=== PATIENT | female | born 1955 | race Caucasian/White ===

== ENCOUNTER 2020-02-22 19:00 | Inpatient (IN) | payer MEDICARE, OTHER ==
[~2020-02-22] VITALS: Ht 170.2 cm; Wt 60.3 kg
[2020-02-22] MEDS ORDERED: FURO-152 PO (19:45)
[2020-02-22] MEDS ORDERED: VALSARTAN (19:45)
[2020-02-22] MEDS ORDERED: DOCU-141 PO (19:45)
[2020-02-22] MEDS ORDERED: ASPI81TA31 PO (19:45)
[2020-02-22] MEDS ORDERED: SACUBITRIL (19:45)
[2020-02-22] MEDS ORDERED: APIX5TAB4 PO (19:45)
[2020-02-22] MEDS ORDERED: POLY17PO4 PO (19:45)
[2020-02-22] MEDS ORDERED: LITH300T3 PO (19:45)
[2020-02-22] MEDS ORDERED: PRAV80TA PO (19:45)
[2020-02-22] MEDS ORDERED: MAGN400T51 PO (19:45)
[2020-02-22] MEDS ORDERED: UMEC62.5 IH (19:45)
[2020-02-22] MEDS ORDERED: CHOL200026 PO (19:45)
[2020-02-22] MEDS ORDERED: SPIR50TA5 PO (19:45)
--- NOTE | 2020-02-22 20:03 | NUR ---
MEDICALLY CLEARED BY DR ANDERSON.
--- NOTE | 2020-02-22 20:51 | NUR ---
Pt. admitted to MHU , under care of Dr. Montemayor / Santino Davis Belongs List completed
[2020-02-22] MEDS ORDERED: MAG HYDROX/AL HYDROX/SIMETH 30 ML LIQUID UDC PO PRN (22:00)
[2020-02-22] MEDS ORDERED: MAGNESIUM HYDROXIDE 30 ML LIQUID UDC PO PRN (22:00)
[2020-02-22] MEDS ORDERED: ACETAMINOPHEN 325 MG TABLET PO PRN (22:00)
[2020-02-22] MEDS ORDERED: TEMAZEPAM 7.5 MG CAPSULE PO PRN (22:00)
[2020-02-22] MEDS: LORAZEPAM 1 MG TABLET PO PRN (23:07)
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
--- NOTE | 2020-02-23 04:53 | NUR ---
PT NOTED WITH SOME EFFECT OF ATIVAN. PT SLIGHTLY ASLEEP SITTING AT THE EDGE OF BED, HEAD ON BEDSIDE TABLE. WILL CONTINUE TO MONITOR.
[2020-02-23 07:49] VITALS: BP 97/52
[2020-02-23] MEDS: SPIRONOLACTONE 50 MG TABLET PO SCH (09:00)
[2020-02-23] MEDS ORDERED: Medication Not On Formulary EA (Apixaban (Eliquis) 5 MG) PO SCH (09:00)
[2020-02-23] MEDS: MAGNESIUM OXIDE 400 MG TABLET PO SCH ×2 (09:58→17:17)
[2020-02-23] MEDS: DOCUSATE SODIUM 100 MG CAPSULE PO SCH ×2 (09:58→17:00)
[2020-02-23] MEDS: FUROSEMIDE 20 MG TABLET PO SCH (09:58)
[2020-02-23] MEDS: ASPIRIN 81 MG TAB.CHEW PO SCH (09:58)
[2020-02-23] MEDS: CHOLECALCIFEROL 1,000 UNIT TABLET PO SCH (09:59)
[2020-02-23] MEDS: MIRALAX 17 GM POWD.PACK PO SCH (09:59)
[2020-02-23] MEDS: LORAZEPAM 1 MG TABLET PO PRN (10:57)
[2020-02-23] MEDS: APIXABAN 5 MG TABLET PO SCH ×2 (11:55→21:22)
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
[2020-02-23 16:10] VITALS: BP 91/50
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
[2020-02-23 20:00] VITALS: BP 93/46
[2020-02-23] MEDS ORDERED: HALOPERIDOL LACTATE 5 MG/1 ML VIAL IM STA (20:39)
[2020-02-23] MEDS ORDERED: LORAZEPAM 2 MG/1 ML VIAL IM STA (20:39)
[2020-02-23] MEDS: ATORVASTATIN 20 MG TABLET PO SCH (21:00)
[2020-02-23] MEDS: risperiDONE 0.5 MG TABLET PO SCH (21:00)
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
[2020-02-24 07:30] VITALS: BP 97/55
[2020-02-24] MEDS: SPIRONOLACTONE 50 MG TABLET PO SCH (09:00)
[2020-02-24] MEDS: MIRALAX 17 GM POWD.PACK PO SCH (09:00)
[2020-02-24] MEDS: DOCUSATE SODIUM 100 MG CAPSULE PO SCH ×2 (09:42→16:03)
[2020-02-24] MEDS: FUROSEMIDE 20 MG TABLET PO SCH (09:42)
[2020-02-24] MEDS: MAGNESIUM OXIDE 400 MG TABLET PO SCH ×2 (09:42→16:03)
[2020-02-24] MEDS: risperiDONE 0.5 MG TABLET PO SCH ×2 (09:42→20:21)
[2020-02-24] MEDS: CHOLECALCIFEROL 1,000 UNIT TABLET PO SCH (09:42)
[2020-02-24] MEDS: ASPIRIN 81 MG TAB.CHEW PO SCH (09:42)
[2020-02-24] MEDS: APIXABAN 5 MG TABLET PO SCH ×2 (10:15→20:21)
[2020-02-24] MEDS: HYDROCODONE/APAP 5-325MG TABLET PO PRN ×2 (13:03→20:58)
--- NOTE | 2020-02-24 14:42 | NUR ---
Pt received resting in bed, no acute distress, or SOB. Pt AAOx2, able to make needs known, assisted to the bathroom, BMx1, and to change clothes. Pt consumed with following OCD patterns involving morning routine, am oral care, and medication administration. Pt displays loose associations, flight of ideas, is repetitious at times, and rambles often. Pt reports c/o chronic pain to lower back radiating down right leg states "pinched nerve" has been an issue resolved with medication in the past. MD contacted, new order recieved for Vanlue 5mg PO PRN Q6hr, and administered. BP medication held due to decreases level of 97/55, hr 50. Able to CFS, denies SI/HI at this time. Will continue to monitor.
[2020-02-24 16:00] VITALS: BP 92/60
[2020-02-24 19:53] VITALS: BP 95/56
[2020-02-24] MEDS: ATORVASTATIN 20 MG TABLET PO SCH (20:21)
--- NOTE | 2020-02-25 01:33 | NUR ---
GPS: RECEIVED PT IN TV ROOM, A/OX2. PT MORE CALM TODAY AND ABLE TO RELATE WITH NURSES. PT COOPERATIVE WITH ROUTINE MEDICATION. STILL NOTED ON AND OFF EXCESSIVE PRESSURE SPEECH. BUT LESS TODAY AND EASILY REDIRECTED . NO PRN GIVEN AT THIS TIME. PT IN BED ASLEEP WITH EVEN BREATHING. Q/15MINS HEAD CHECK ONGOING.
[2020-02-25 07:43] LABS: BASOPHILS % (AUTO) 0.4 % (0.0-2.0); EOSINOPHILS % (AUTO) 1.2 % (0.0-7.0); HEMATOCRIT 41.5 % (31.2-41.9); HEMOGLOBIN 14.1 g/dL (10.9-14.3); LYMPHOCYTES # (AUTO) 1.2 K/uL (20.0-40.0); LYMPHOCYTES % (AUTO) 35.7 % (20.5-51.5); MEAN CORPUSCULAR HEMOGLOBIN 32.4 uug (24.7-32.8); MEAN CORPUSCULAR HGB CONC 34 g/dL (32.3-35.6); MEAN CORPUSCULAR VOLUME 95.7 fL (75.5-95.3); MONOCYTES # (AUTO) 0.2 K/uL (2.0-10.0); MONOCYTES % (AUTO) 7.1 % (0.0-11.0); NEUTROPHILS # (AUTO) 1.8 K/uL (1.8-8.9); NEUTROPHILS % (AUTO) 55.6 % (38.5-71.5); PLATELET COUNT (AUTO) 151 K/uL (179-408); RED BLOOD CELL COUNT(AUTO) 4.34 MIL/uL (3.63-4.92); WHITE BLOOD COUNT (AUTO) 3.2 K/uL (3.8-11.8)
[2020-02-25 07:51] LABS: BILIRUBIN,TOTAL 0.3 mg/dL (0.2-1.0); CREATININE 0.9 mg/dL (0.6-1.3); MAGNESIUM 1.8 mg/dL (1.8-2.4); PHOSPHOROUS 3.8 mg/dL (2.5-4.9); POTASSIUM 3.6 mmol/L (3.5-5.1); TOTAL PROTEIN, SERUM 5.7 g/dL (6.4-8.2)
[2020-02-25 08:04] VITALS: BP 134/62
[2020-02-25 08:12] LABS: THYROID STIMULATING HORMONE 0.688 mIU/mL (0.358-3.740)
[2020-02-25] MEDS: ASPIRIN 81 MG TAB.CHEW PO SCH (08:52)
[2020-02-25] MEDS: MAGNESIUM OXIDE 400 MG TABLET PO SCH ×2 (08:52→16:52)
[2020-02-25] MEDS: MIRALAX 17 GM POWD.PACK PO SCH (08:53)
[2020-02-25] MEDS: CHOLECALCIFEROL 1,000 UNIT TABLET PO SCH (08:53)
[2020-02-25] MEDS: DOCUSATE SODIUM 100 MG CAPSULE PO SCH ×2 (08:53→16:58)
[2020-02-25] MEDS: risperiDONE 0.5 MG TABLET PO SCH ×2 (09:00→21:00)
[2020-02-25] MEDS: FUROSEMIDE 20 MG TABLET PO SCH (09:00)
[2020-02-25] MEDS: SPIRONOLACTONE 50 MG TABLET PO SCH (09:10)
[2020-02-25] MEDS: APIXABAN 5 MG TABLET PO SCH ×2 (09:31→20:19)
[2020-02-25] MEDS: HYDROCODONE/APAP 5-325MG TABLET PO PRN ×2 (09:31→16:55)
[2020-02-25] MEDS: FLUTICASONE/VILANTEROL 1 EACH BLST.W.DEV INH SCH (11:04)
--- NOTE | 2020-02-25 12:08 | NUR ---
KARLA Initial Discharge Plan: Patient was residing at [facility] [address] [place] [address] ([phone]) however patient is no longer able to return. Per Janet Mcgraw Sister/DPOA ([phone]), patient needs a nursing home facility. KARLA will continue to work with patient, family, and MD to ensure a safe and proper discharge plan.
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
[2020-02-25 15:46] VITALS: BP 106/55
[2020-02-25 20:05] VITALS: BP 95/57
[2020-02-25] MEDS: ATORVASTATIN 20 MG TABLET PO SCH (20:19)
--- NOTE | 2020-02-25 22:30 | NUR ---
received to care, watching tv with peers, pleasant, but guarded, upon approach. refused risperdal, stating that it makes her "feel sick". Dr bonner saw her, and changed it to haldol, to start in the morning. as of 2229, she appears to be asleep. no distress noted. will continue to monitor closely.
--- NOTE | 2020-02-26 06:00 | NUR ---
slept 6 hours. continues to sleep. no distress noted.
[2020-02-26 07:45] VITALS: BP 108/60
[2020-02-26] MEDS: DOCUSATE SODIUM 100 MG CAPSULE PO SCH ×2 (08:10→16:16)
[2020-02-26] MEDS: HALOPERIDOL 0.5 MG TABLET PO SCH ×4 (08:10→17:00)
[2020-02-26] MEDS: FUROSEMIDE 20 MG TABLET PO SCH (08:11)
[2020-02-26] MEDS: CHOLECALCIFEROL 1,000 UNIT TABLET PO SCH (08:11)
[2020-02-26] MEDS: ASPIRIN 81 MG TAB.CHEW PO SCH (08:11)
[2020-02-26] MEDS: MIRALAX 17 GM POWD.PACK PO SCH ×2 (08:19→09:00)
[2020-02-26] MEDS: MAGNESIUM OXIDE 400 MG TABLET PO SCH ×2 (08:19→16:16)
[2020-02-26] MEDS: APIXABAN 5 MG TABLET PO SCH ×2 (08:20→20:28)
[2020-02-26] MEDS: SPIRONOLACTONE 50 MG TABLET PO SCH (08:25)
--- NOTE | 2020-02-26 11:03 | NUR ---
KARLA Coordination of Care: SW called [facility] ([phone]) to inquire of patient may be accepted back to their facility upon discharge from hospital. Left a voicemail for educational resource coordinator to call this expert medical writer back.
[2020-02-26] MEDS: HYDROCODONE/APAP 5-325MG TABLET PO PRN ×2 (11:50→18:01)
--- NOTE | 2020-02-26 13:19 | NUR ---
Received patient sleeping in bed in stable condition. Patient suspicious and anxious noted. Patient unable to care for herself. Patient ask to do small things for her. Patient compliant with medication but need to do her routine and eat all her food prior to take medication. no agitation noted. not in distress. will continue monitor
[2020-02-26 15:42] VITALS: BP 120/82
--- NOTE | 2020-02-26 17:03 | NUR ---
Patient took medication except haldol despite of ecouragement and education. Patient believe it is not effect and have side effect. MD notified. Charge nurse notified. will continue monitor
[2020-02-26 20:17] VITALS: BP 109/68
[2020-02-26] MEDS: ATORVASTATIN 20 MG TABLET PO SCH (20:28)
--- NOTE | 2020-02-26 22:00 | NUR ---
received to care, in activity room, watching tv with peers, pleasant, but guarded, upon approach. compliant with medications and staff direction. as of 2199, she remains awake, watching tv. no distress noted. will continue to monitor closely.
--- NOTE | 2020-02-26 23:30 | NUR ---
appears to be asleep. no distress noted.
--- NOTE | 2020-02-27 06:00 | NUR ---
slept 6 hours. continues to sleep. no distress noted.
[2020-02-27 07:30] VITALS: BP 126/83
[2020-02-27] MEDS: MIRALAX 17 GM POWD.PACK PO SCH (08:31)
[2020-02-27] MEDS: MAGNESIUM OXIDE 400 MG TABLET PO SCH ×2 (08:31→16:27)
[2020-02-27] MEDS: DOCUSATE SODIUM 100 MG CAPSULE PO SCH ×2 (08:31→16:27)
[2020-02-27] MEDS: CHOLECALCIFEROL 1,000 UNIT TABLET PO SCH (08:31)
[2020-02-27] MEDS: FLUTICASONE/VILANTEROL 1 EACH BLST.W.DEV INH SCH (08:31)
[2020-02-27] MEDS: ASPIRIN 81 MG TAB.CHEW PO SCH (08:31)
[2020-02-27] MEDS: HALOPERIDOL 0.5 MG TABLET PO SCH ×5 (08:31→16:41)
[2020-02-27] MEDS: SPIRONOLACTONE 50 MG TABLET PO SCH (08:33)
[2020-02-27] MEDS: APIXABAN 5 MG TABLET PO SCH ×2 (08:33→20:29)
[2020-02-27] MEDS: FUROSEMIDE 20 MG TABLET PO SCH (08:54)
--- NOTE | 2020-02-27 10:29 | NUR ---
SW Family Contact: Faxed patient's referral packet to [facility] ( ) for review and patient was not accepted to the facility, spoke with Jordi. 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 Spoke with Janet Mariluz Purdy/DPCIARA ([phone]) regarding this and the share of cost, Janet is okay with the share of cost and will pay for any alf.
[2020-02-27] MEDS: HYDROCODONE/APAP 5-325MG TABLET PO PRN ×3 (10:32→22:24)
--- NOTE | 2020-02-27 11:06 | NUR ---
KARLA Coordination of Care: KARLA called again [facility] ([phone]) to inquire of patient may be accepted back to their facility upon discharge from hospital. Spoke with Juan special services coordinator who stated that they will not be able to accept this patient back due to her leaving AMA several times. Juan suggested patient's sister, Janet ([phone]) to call the facility and speak with BRITTANY Guerrero (ext: [phone]) regarding patient's acceptance there. KARLA called Janet ([phone]) and informed of the above conversation, Janet stated she will talk to Karl, and in the mean time asked if this pattern chart writer will continue to look for alternate assisted placement for the patient, this pattern chart writer agreed.
--- NOTE | 2020-02-27 11:12 | NUR ---
KARLA Discharge Planning: KARLA spoke with and faxed patient's referral packet to Latha video production coordinator at [facility] (fax: [phone] ), waiting for review and possible placement option. Latha stated that she will review the referral packet, and speak with patient's sister and get back to this check writer. Addendum: 02/27/20 at 1617 by FELICE HICKS Patient is accepted to [facility] and can admit to facility upon discharge.
--- NOTE | 2020-02-27 15:32 | NUR ---
GPS: received patient AOx2-3, patient paranoid and delusional, needs prompt in taking medication, patient walks around i the hallway with FWW, patient needed reenforcement and set limit , patient eventually took medication, patient cooperative , will continue monitor
[2020-02-27 16:00] VITALS: BP 101/72
--- NOTE | 2020-02-27 17:24 | NUR ---
patient refused her haldol
--- NOTE | 2020-02-27 18:51 | NUR ---
patient seen and examine by Dr. Albina MD file MAGDALENE
[2020-02-27 20:11] VITALS: BP 139/65
[2020-02-27] MEDS: ATORVASTATIN 20 MG TABLET PO SCH (20:28)
--- NOTE | 2020-02-27 22:00 | NUR ---
received to care, watching tv with peers, pleasant upon approach. interacts well with select female peers. compliant with medications and staff direction. pt is hyperverbal, and needy, at times. needs redirection at times, which she responds to, well. continues to refuse all psychotropic medications, even when explained the risks and benefits of compliance. as of 0, she remains awake, in her room, reading. no distress noted. will continue to monitor closely.
--- NOTE | 2020-02-27 23:30 | NUR ---
PRN norco was given at 2223, for lower back pain 06/05. as of 2299, she appears to be asleep. no dsitress noted. will continue to monitor closely.
--- NOTE | 2020-02-28 06:00 | NUR ---
slept 5.5 hours. continues to sleep. no distress noted.
[2020-02-28 07:30] VITALS: BP 111/57
[2020-02-28] MEDS: HALOPERIDOL 0.5 MG TABLET PO SCH ×3 (08:50→17:00)
[2020-02-28] MEDS: MAGNESIUM OXIDE 400 MG TABLET PO SCH ×2 (08:50→17:05)
[2020-02-28] MEDS: ASPIRIN 81 MG TAB.CHEW PO SCH (08:50)
[2020-02-28] MEDS: CHOLECALCIFEROL 1,000 UNIT TABLET PO SCH (08:50)
[2020-02-28] MEDS: FUROSEMIDE 20 MG TABLET PO SCH (08:50)
[2020-02-28] MEDS: DOCUSATE SODIUM 100 MG CAPSULE PO SCH ×2 (08:50→17:05)
[2020-02-28] MEDS: SPIRONOLACTONE 50 MG TABLET PO SCH (08:51)
[2020-02-28] MEDS: FLUTICASONE/VILANTEROL 1 EACH BLST.W.DEV INH SCH (08:51)
[2020-02-28] MEDS: APIXABAN 5 MG TABLET PO SCH ×2 (08:52→20:25)
[2020-02-28] MEDS: MIRALAX 17 GM POWD.PACK PO SCH (08:53)
[2020-02-28] MEDS: HYDROCODONE/APAP 5-325MG TABLET PO PRN ×2 (11:04→20:24)
[2020-02-28 16:00] VITALS: BP 108/57
--- NOTE | 2020-02-28 19:30 | NUR ---
Received patient in her room,awake, complaining of tolerable low back pain at this time, asking when she's due for her next [place] pain medications. Ambulatory with steady gait, No s/s of respiratory distress. Safety measures and fall precaution maintained. Continue care as planned.
[2020-02-28] MEDS: ATORVASTATIN 20 MG TABLET PO SCH (20:24)
--- NOTE | 2020-02-28 20:25 | NUR ---
Medicated for low back pain as ordered and needed. Will monitor.
[2020-02-28 21:19] VITALS: BP 101/50
--- NOTE | 2020-02-29 06:11 | NUR ---
Slept 6 hours today. Medicated once for complaint of low back pain with relief. No further complaint presented. All needs attended and met. No significant event reported all night. VS stable.
[2020-02-29 07:30] VITALS: BP 112/61
[2020-02-29 07:41] LABS: THYROID STIMULATING HORMONE 0.906 mIU/mL (0.358-3.740)
[2020-02-29 07:52] LABS: *RHEUMATOID FACTOR SCREEN NEGATIVE (NEGATIVE)
[2020-02-29] MEDS: ASPIRIN 81 MG TAB.CHEW PO SCH (08:53)
[2020-02-29] MEDS: HALOPERIDOL 0.5 MG TABLET PO SCH ×3 (08:53→16:03)
[2020-02-29] MEDS: FLUTICASONE/VILANTEROL 1 EACH BLST.W.DEV INH SCH (08:53)
[2020-02-29] MEDS: DOCUSATE SODIUM 100 MG CAPSULE PO SCH ×2 (08:53→16:03)
[2020-02-29] MEDS: CHOLECALCIFEROL 1,000 UNIT TABLET PO SCH (08:53)
[2020-02-29] MEDS: MAGNESIUM OXIDE 400 MG TABLET PO SCH ×2 (08:54→16:03)
[2020-02-29] MEDS: MIRALAX 17 GM POWD.PACK PO SCH (08:54)
[2020-02-29] MEDS: APIXABAN 5 MG TABLET PO SCH ×2 (08:54→20:41)
[2020-02-29] MEDS: FUROSEMIDE 20 MG TABLET PO SCH (08:54)
[2020-02-29] MEDS: SPIRONOLACTONE 50 MG TABLET PO SCH (09:33)
[2020-02-29] MEDS: HYDROCODONE/APAP 5-325MG TABLET PO PRN ×2 (10:42→22:14)
--- NOTE | 2020-02-29 10:59 | NUR ---
Social Work Firearms Report (DOJ): Associate Material Handler completed and submitted a DP[employer] firearms report for 5250 grave disability certification. A copy of report has been placed in patient chart.
--- NOTE | 2020-02-29 12:48 | NUR ---
SW Family Contact: Spoke with Janet Mcgraw Sister/DPOA ([phone]) regarding patient's discharge plan. Janet stated that she is happy with [facility] for the patient however, she wishes it was something closer to [facility]. This designer/writer explaining that facilities are not accepting patients at the moment and that she was refused by another facility. This designer/writer recommended she can look as well and recommend facilities to this designer/writer. However, she will be alright with [facility] for now.
--- NOTE | 2020-02-29 15:43 | NUR ---
Social Work Individual Therapy: barrow worker met with pt for brief counseling to address pt's disorganized thought process. Pt presented with pressured and hyperverbal speech. During session, pt was tangible and unable to be redirected. Pt is unable to keep focus on topc at hand and becomes irritable when elementary school social worker attempts to redirect her focus to the conversation.
[2020-02-29 16:00] VITALS: BP 117/79
--- NOTE | 2020-02-29 17:31 | NUR ---
GPS: received patient asleep on bed, patient ate breakfast , took medication after prompting and compromise with the patient rituals, patient always wanted to finish meals and have to use her toilet and wanted a detailed information on her medication which was provided, today patient less irritated and been compliant with her medication all the day, patient was scheduled for [place] sher
[2020-02-29 20:29] VITALS: BP 127/60
[2020-02-29] MEDS: ATORVASTATIN 20 MG TABLET PO SCH (20:38)
--- NOTE | 2020-02-29 21:37 | NUR ---
AAox2-3 Ambulatory with walker. Compliant with meds. No acute distress noted. VSS. Dr Montemayor came and saw patient. Haldol increased from 0.25 to Haldol 1 mg. No signs of agitation or behavioral issues noted. Will monitor patient.
--- NOTE | 2020-03-01 05:58 | NUR ---
Slept 5 1/2 hours last night. No acute distress noted. Was medicated with [place] for low back pain with relief noted. All needs met. No behavioral issues noted.
[2020-03-01 07:30] VITALS: BP 116/53
[2020-03-01] MEDS: HALOPERIDOL 1 MG TABLET PO SCH ×3 (09:00→17:00)
[2020-03-01] MEDS: FLUTICASONE/VILANTEROL 1 EACH BLST.W.DEV INH SCH (09:26)
[2020-03-01] MEDS: CHOLECALCIFEROL 1,000 UNIT TABLET PO SCH (09:27)
[2020-03-01] MEDS: ASPIRIN 81 MG TAB.CHEW PO SCH (09:27)
[2020-03-01] MEDS: DOCUSATE SODIUM 100 MG CAPSULE PO SCH ×2 (09:27→17:59)
[2020-03-01] MEDS: FUROSEMIDE 20 MG TABLET PO SCH (09:28)
[2020-03-01] MEDS: MAGNESIUM OXIDE 400 MG TABLET PO SCH ×2 (09:28→18:00)
[2020-03-01] MEDS: MIRALAX 17 GM POWD.PACK PO SCH (09:28)
[2020-03-01] MEDS: SPIRONOLACTONE 50 MG TABLET PO SCH (09:30)
[2020-03-01] MEDS: APIXABAN 5 MG TABLET PO SCH ×2 (09:32→21:14)
[2020-03-01 11:08] LABS: *IMMUNOGLOBULIN G, SERUM 466 mg/dL (586-1602); IMMUNOGLOBULIN A, SERUM 47 mg/dL (87-352); IMMUNOGLOBULIN M, SERUM 158 mg/dL (26-217)
[2020-03-01] MEDS: HYDROCODONE/APAP 5-325MG TABLET PO PRN ×2 (12:43→18:37)
[2020-03-01 13:08] LABS: *ANTI-SCLERODERMA-70 AB <0.2 AI (0.0-0.9); *SJOGREN'S ANTI-SS-A <0.2 AI (0.0-0.9); *SJOGREN'S ANTI-SS-B <0.2 AI (0.0-0.9); *SMITH ANTIBODIES <0.2 AI (0.0-0.9); ANTI-DNA(DS) AB, QN <1 IU/mL (0-9)
[2020-03-01 16:00] VITALS: BP 98/55
[2020-03-01 20:07] VITALS: BP 114/34
[2020-03-01] MEDS: ATORVASTATIN 20 MG TABLET PO SCH (20:33)
--- NOTE | 2020-03-01 21:21 | NUR ---
Received pt walking in the hallway using walker. No acute distress noted. Denies pain/ discomfort. Denies suicidal ideation. Due meds given as ordered. Safety measures maintained. Will continue to monitor.
[2020-03-02 07:48] VITALS: BP 111/82
[2020-03-02] MEDS: HALOPERIDOL 1 MG TABLET PO SCH ×3 (09:00→16:39)
[2020-03-02] MEDS: MAGNESIUM OXIDE 400 MG TABLET PO SCH ×2 (09:58→16:39)
[2020-03-02] MEDS: ASPIRIN 81 MG TAB.CHEW PO SCH (09:58)
[2020-03-02] MEDS: FUROSEMIDE 20 MG TABLET PO SCH (09:58)
[2020-03-02] MEDS: SPIRONOLACTONE 50 MG TABLET PO SCH (09:58)
[2020-03-02] MEDS: CHOLECALCIFEROL 1,000 UNIT TABLET PO SCH (09:58)
[2020-03-02] MEDS: DOCUSATE SODIUM 100 MG CAPSULE PO SCH ×2 (09:58→16:39)
[2020-03-02] MEDS: FLUTICASONE/VILANTEROL 1 EACH BLST.W.DEV INH SCH (09:59)
[2020-03-02] MEDS: MIRALAX 17 GM POWD.PACK PO SCH (10:00)
--- NOTE | 2020-03-02 10:00 | NUR ---
Gps/Liquor Grinding Mill Operator- Patient stll refusing haldol 1 mg po, claimed it gives her extra movement to her lips that she does not like, encouraged to to talke to her Psychiatrist about it, reviewed with patient, educ. re- haldol, still refused.. Attending group therapy, stayed in the patrio with her group. Hyperverbal , anxious.
[2020-03-02] MEDS: APIXABAN 5 MG TABLET PO SCH ×2 (10:05→20:26)
[2020-03-02] MEDS: HYDROCODONE/APAP 5-325MG TABLET PO PRN ×2 (12:59→20:51)
--- NOTE | 2020-03-02 13:00 | NUR ---
Gps/Inventory Control Planner- Noted patient anxious, loud, complaining in the dinning room she did not like her food requesting another tray, but her lunch tray not complete called kitchen to assist pt. w/ needs(food). Offered ativan , noted > anxious, claimed she does not need it, she'll try to calm down., she apologized, claimed will try to be quiet. Still refused haldol 1 mg po.
[2020-03-02 15:37] VITALS: BP 117/69
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
--- NOTE | 2020-03-02 16:59 | NUR ---
Gps/Distribution Operation Supervisor- Per patient she's not supposed to take any psych. med. r/t to her [place]. treatment , claimed recommended by her Primary Doctor.Instructed and encouraged the need to talk to her Psychiatrist, and reminded patient she's at [facility]
[2020-03-02 20:00] VITALS: BP 102/60
--- NOTE | 2020-03-02 20:00 | NUR ---
GPS NURSE'S NOTES. RECEIVED PATIENT IN THE DAY ROOM WATCHING TV. SHE IS NOTED A/O 3, CALM AND PLEASANT UPON APPROACHED. SHE IS ABLE TO VERBALIZED FEELINGS. PATIENT IS SELECTIVE WITH HER MEDICATION REGIMENT. SHE IS COMPLIANT WITH ALL HER MEDICAL MEDICATION AND PO PRNs PAIN MEDICATIONS. SHE DENIES SI/HI/VH/AH. SHE IS NOTED WITH POOR INSIGHT TO THE REASON FOR HER ADMISSION TO MHU. V/S STABLE. PT IS REASSURED FOR HER SAFETY. SAFETY AND FALL PRECAUTION IN PLACE. WILL CONTINUE TO MONITOR,
[2020-03-02] MEDS: ATORVASTATIN 20 MG TABLET PO SCH (20:22)
[2020-03-03 07:30] VITALS: BP 111/51
[2020-03-03] MEDS: HALOPERIDOL 1 MG TABLET PO SCH ×3 (08:53→16:02)
[2020-03-03] MEDS: FLUTICASONE/VILANTEROL 1 EACH BLST.W.DEV INH SCH (08:53)
[2020-03-03] MEDS: MAGNESIUM OXIDE 400 MG TABLET PO SCH ×2 (08:53→16:02)
[2020-03-03] MEDS: FUROSEMIDE 20 MG TABLET PO SCH (08:53)
[2020-03-03] MEDS: DOCUSATE SODIUM 100 MG CAPSULE PO SCH ×2 (08:53→16:02)
[2020-03-03] MEDS: CHOLECALCIFEROL 1,000 UNIT TABLET PO SCH (08:53)
[2020-03-03] MEDS: ASPIRIN 81 MG TAB.CHEW PO SCH (08:53)
[2020-03-03] MEDS: SPIRONOLACTONE 50 MG TABLET PO SCH (08:54)
[2020-03-03] MEDS: MIRALAX 17 GM POWD.PACK PO SCH (08:55)
[2020-03-03] MEDS: APIXABAN 5 MG TABLET PO SCH ×2 (08:55→21:19)
[2020-03-03] MEDS: HYDROCODONE/APAP 5-325MG TABLET PO PRN ×2 (13:34→20:14)
[2020-03-03] MEDS ORDERED: HALOPERIDOL LACTATE 5 MG/1 ML VIAL IM ONE (14:00)
[2020-03-03] MEDS ORDERED: HALOPERIDOL LACTATE 5 MG/1 ML VIAL IM PRN (14:15)
[2020-03-03 15:14] VITALS: BP 113/56
[2020-03-03 20:25] VITALS: BP 112/52
--- NOTE | 2020-03-04 04:16 | NUR ---
Received patient in bed. AAO x3. No acute distress or SOB was noted. Compliant with medication. No SI. Calm and cooperative. No behavioral issues. Safety measures maintained. All due medication administered as ordered. Continue to monitor.
[2020-03-04 05:07] LABS: A/G RATIO 1.6 (0.7-1.7); ALBUMIN 3.1 g/dL (2.9-4.4); ALPHA-1-GLOBULIN 0.2 g/dL (0.0-0.4); ALPHA-2-GLOBULIN 0.6 g/dL (0.4-1.0); BETA GLOBULIN 0.7 g/dL (0.7-1.3); GAMMA GLOBULIN 0.5 g/dL (0.4-1.8); M-SPIKE Not Observed g/dL (Not Observed)
[2020-03-04 07:30] VITALS: BP 121/68
[2020-03-04] MEDS: FLUTICASONE/VILANTEROL 1 EACH BLST.W.DEV INH SCH (08:33)
[2020-03-04] MEDS: FUROSEMIDE 20 MG TABLET PO SCH (08:34)
[2020-03-04] MEDS: SPIRONOLACTONE 50 MG TABLET PO SCH (08:34)
[2020-03-04] MEDS: MAGNESIUM OXIDE 400 MG TABLET PO SCH ×2 (08:34→17:04)
[2020-03-04] MEDS: ASPIRIN 81 MG TAB.CHEW PO SCH (08:34)
[2020-03-04] MEDS: DOCUSATE SODIUM 100 MG CAPSULE PO SCH ×2 (08:34→17:04)
[2020-03-04] MEDS: CHOLECALCIFEROL 1,000 UNIT TABLET PO SCH (08:35)
[2020-03-04] MEDS: HALOPERIDOL 1 MG TABLET PO SCH ×3 (08:35→17:04)
[2020-03-04] MEDS: APIXABAN 5 MG TABLET PO SCH ×2 (08:35→20:45)
[2020-03-04] MEDS: MIRALAX 17 GM POWD.PACK PO SCH (08:36)
--- NOTE | 2020-03-04 11:15 | NUR ---
Received patient in room this am. Very hyperverbal, paranoid and extremely needy. Patient was however compliant with her medications after about an hour of encouragement and education. This patient needs constant redirection and limit setting. Continuing to monitor for pain , safety and any increase in anxiety escalation. No acute distress noted at this time.
[2020-03-04] MEDS: HYDROCODONE/APAP 5-325MG TABLET PO PRN ×2 (11:39→20:47)
[2020-03-04 15:04] VITALS: BP 114/72
--- NOTE | 2020-03-04 15:09 | NUR ---
Social Work Individual Therapy: woodworker met with patient for brief supportive counseling to address patient's disorganized thought process. Pt continues to remain hyperverbal and repetitive. Patient is unable to engage in a meaningful conversation and stay on topic of questions answered by this manager social services. Constant redirection is required for patient to understand her concerns. woodworker provided support and encouraged patient to remain calm and cooperative with her treatment and continue to participate in group activities.
[2020-03-04 20:51] VITALS: BP 135/60
[2020-03-05] MEDS: LORAZEPAM 1 MG TABLET PO PRN ×2 (00:30→17:41)
--- NOTE | 2020-03-05 02:31 | NUR ---
GPS: PT A/O X2, UP IN ACTIVITY ROOM AMBULATING WITH WALKER. PT WAS NOTED HYPERVERBAL WHILE USING TELEPHONE TALKING TO HER SISTER. PT WAS ADVISED OF LOWERING HER VOICE DUE TO OTHER PT'S COMPLAINING, BUT PT WAS NOT ABLE TO BE REDIRECTED. PT WAS ASKED TO DROP THE CALL AND TAKE A LITTLE BREAK TO VENT AND CALM. PT WAS COOPERATIVE, ROUTINE MEDICATIONS GIVEN AND PT REQUESTED FOR NORCO DUE TO PAIN. PRN GIVEN WITH REPORT OF IMPROVEMENT. PT WANT TO HER ROOM BUT UNABLE TO SLEEP DUE TO OVER PREOCCUPIED OF ROOMMATE TOUCHING HER STUFFS. PT REQUESTED ATIVAN DUE TO FEELING TOO ANXIOUS. PRN WAS GIVEN AND NOTED SOME EFFECT. PT NOW RESTING IN BED WITH EVEN BREATHING. WILL CONTINUE TO MONITOR Q/15MINS HEAD COUNT.
[2020-03-05 07:30] VITALS: BP 116/60
[2020-03-05] MEDS: CHOLECALCIFEROL 1,000 UNIT TABLET PO SCH (08:51)
[2020-03-05] MEDS: DOCUSATE SODIUM 100 MG CAPSULE PO SCH ×2 (08:51→17:00)
[2020-03-05] MEDS: FUROSEMIDE 20 MG TABLET PO SCH (08:51)
[2020-03-05] MEDS: ASPIRIN 81 MG TAB.CHEW PO SCH (08:51)
[2020-03-05] MEDS: HALOPERIDOL 1 MG TABLET PO SCH ×3 (08:51→17:41)
[2020-03-05] MEDS: FLUTICASONE/VILANTEROL 1 EACH BLST.W.DEV INH SCH (08:51)
[2020-03-05] MEDS: MAGNESIUM OXIDE 400 MG TABLET PO SCH ×2 (08:51→17:41)
[2020-03-05] MEDS: SPIRONOLACTONE 50 MG TABLET PO SCH (08:52)
[2020-03-05] MEDS: APIXABAN 5 MG TABLET PO SCH ×2 (08:53→20:09)
[2020-03-05] MEDS: MIRALAX 17 GM POWD.PACK PO SCH (08:53)
[2020-03-05] MEDS: HYDROCODONE/APAP 5-325MG TABLET PO PRN ×2 (12:06→20:17)
--- NOTE | 2020-03-05 14:33 | NUR ---
Received patient in the am , awake and alert. Very stressed out over little things. Medications taken after extended time d/t the fact this patient has OCD behaviors. Medicated for pain x1, refusing to take PRN medication for anxiety. Patient is hyperverbal and needs to hypermanage every situation. Constant reminders to focus needed plus reassurance and redirection. Multiple requests for things asked all day long. Patient is needy and attention seeking. VS are stable, no resp distress noted. Monitoring for safety and behavior escalation.
[2020-03-05 16:00] VITALS: BP 99/57
[2020-03-05 20:55] VITALS: BP 100/50
[2020-03-05] MEDS: DIVALPROEX 250 MG TABLET.DR PO SCH (21:45)
--- NOTE | 2020-03-05 23:30 | NUR ---
received to care, pleasant upon approach, but very restless, and hyperverbal. remains obsessive in her behaviors. difficult to redirect. seen by Dr Montemayor, this evening. depakote was ordered to start this evening, but she refused to take it, even with encouragement. PRN norco was given at 2016, for lower back pain, which was effective. as of 2329, she remains awake, in activity room. PRN medications were offered for insomnia or anxiety, but she declined. currently sitting quietly. no distress noted.
--- NOTE | 2020-03-06 00:15 | NUR ---
went to bed, around 2355. as of 14, he appears to be asleep. no distress noted. will continue to monitor closely.
--- NOTE | 2020-03-06 06:00 | NUR ---
slept 4.75 hours total. continues to sleep. no distress noted.
[2020-03-06 07:30] VITALS: BP 121/67
[2020-03-06] MEDS: MAGNESIUM OXIDE 400 MG TABLET PO SCH ×2 (08:59→17:54)
[2020-03-06] MEDS: ASPIRIN 81 MG TAB.CHEW PO SCH (08:59)
[2020-03-06] MEDS: FUROSEMIDE 20 MG TABLET PO SCH (08:59)
[2020-03-06] MEDS: HALOPERIDOL 1 MG TABLET PO SCH ×3 (08:59→17:54)
[2020-03-06] MEDS: DOCUSATE SODIUM 100 MG CAPSULE PO SCH ×2 (08:59→17:00)
[2020-03-06] MEDS: DIVALPROEX 250 MG TABLET.DR PO SCH ×2 (08:59→20:41)
[2020-03-06] MEDS: CHOLECALCIFEROL 1,000 UNIT TABLET PO SCH (08:59)
[2020-03-06] MEDS: MIRALAX 17 GM POWD.PACK PO SCH (09:00)
[2020-03-06] MEDS: SPIRONOLACTONE 50 MG TABLET PO SCH (09:00)
[2020-03-06] MEDS: FLUTICASONE/VILANTEROL 1 EACH BLST.W.DEV INH SCH (09:01)
[2020-03-06] MEDS: APIXABAN 5 MG TABLET PO SCH ×2 (09:04→20:42)
--- NOTE | 2020-03-06 12:08 | NUR ---
SW Family Contact: Spoke with Janet Mcgraw Sister/DPOA ([phone]) regarding patient's current condition. Janet was concerned that the patient is not doing better, this business writer provided updates on patient's behaviors and recent medication changes. Also re discussed patient's discharge plan which remain the same to [facility].
[2020-03-06] MEDS: HYDROCODONE/APAP 5-325MG TABLET PO PRN ×2 (12:13→20:42)
[2020-03-06 16:00] VITALS: BP 117/60
--- NOTE | 2020-03-06 18:22 | NUR ---
EOS note: No significant acute changes this shift. Pt A/Ox2-3 verbally responsive and able to make her needs known. Pt. compliant with medications and tx. Pt. reported BEVER[place] bruise, stated "This bruise came from [facility]", photos taken and placed in chart for documentation. [place] given for c/o lower back pain and effective. Pt. ambulatory with steady gait using FWW. Frequent rounding done. Safety measures in place. Will endorse to oncoming shift.
[2020-03-06 20:00] VITALS: BP 126/84
--- NOTE | 2020-03-06 22:00 | NUR ---
eceived to care, watching tv with peers, pleasant, but guarded, upon approach. refused depakote. PRN norco was given at 2041, for lower back pain, which was effective. as of 2199, she remains awake, watching tv. no distress noted. will continue to monitor closely.
--- NOTE | 2020-03-07 06:00 | NUR ---
slept 4.25 hours, total. continues to sleep. no distress noted.
[2020-03-07 07:30] VITALS: BP 136/66
--- NOTE | 2020-03-07 08:00 | NUR ---
Received patient in bed sleeping in NO acute distress. VS stable and will continue with care.
[2020-03-07] MEDS: MAGNESIUM OXIDE 400 MG TABLET PO SCH ×2 (09:16→18:12)
[2020-03-07] MEDS: DIVALPROEX 250 MG TABLET.DR PO SCH ×2 (09:17→20:22)
[2020-03-07] MEDS: SPIRONOLACTONE 50 MG TABLET PO SCH (09:17)
[2020-03-07] MEDS: CHOLECALCIFEROL 1,000 UNIT TABLET PO SCH (09:17)
[2020-03-07] MEDS: DOCUSATE SODIUM 100 MG CAPSULE PO SCH ×2 (09:18→18:11)
[2020-03-07] MEDS: ASPIRIN 81 MG TAB.CHEW PO SCH (09:18)
[2020-03-07] MEDS: HALOPERIDOL 1 MG TABLET PO SCH ×3 (09:18→18:11)
[2020-03-07] MEDS: FUROSEMIDE 20 MG TABLET PO SCH (09:18)
[2020-03-07] MEDS: APIXABAN 5 MG TABLET PO SCH ×2 (09:19→20:23)
[2020-03-07] MEDS: FLUTICASONE/VILANTEROL 1 EACH BLST.W.DEV INH SCH (09:20)
[2020-03-07] MEDS: MIRALAX 17 GM POWD.PACK PO SCH (09:37)
[2020-03-07] MEDS: HYDROCODONE/APAP 5-325MG TABLET PO PRN ×2 (13:12→21:33)
--- NOTE | 2020-03-07 14:30 | NUR ---
Patient was very anxious and paranoid during lunch time. Stating that some one was touching her food, and she cant pick the onions and garcia peepers from tray. Explained to patient there was no body touching her food and calmed patient. Ordered alternative lunch per patient request and ate well. continued monitoring.
[2020-03-07 15:10] VITALS: BP 98/45
--- NOTE | 2020-03-07 16:00 | NUR ---
SW Note: A petition for temporary probate conservatorship was dropped off by Staff Field Engineer Lorenzo Guerrero ([phone]) and a copy was given to the patient and one placed in her chart.
--- NOTE | 2020-03-07 19:50 | NUR ---
Patient in stable condition, VS stable. All due medications administered as ordered and scheduled. Patient calm and cooperative with care. Safety measures in place, needs attended and will continue with care.
--- NOTE | 2020-03-07 19:51 | NUR ---
Endorsed to PM shift.
[2020-03-07 20:09] VITALS: BP 126/75
--- NOTE | 2020-03-07 22:10 | NUR ---
PATIENT RECEIVED IN ACTIVITIES ROOM INTERACTING WITH THE RESIDENTS. PATIENT ALERT/ORIENTED X2. PATIENT IS EASILY IRRITABLE AND ANXIOUS PATIENT IS REDIRECTABLE AND COMPLAINT WITH MEDICATION. PATIENT STATED HAVING BACK PAIN 9/10 PAIN MEDICATION GIVEN ORDERED. SAFE ENVIRONMENT PROVIDED, FREQUENT ROUNDING, AND CLUTTER FREE ENVIRONMENT. BED IN LOWEST POSITION, BED LOCKED AND BED ALARM ON WHILE IN BED.
[2020-03-08 07:30] VITALS: BP 114/53
--- NOTE | 2020-03-08 08:00 | NUR ---
GPS: RECEIVED PATIENT AOX2-3, PATIENT IS ANXIOUS, PRESSURED SPEECH PATIENT GETS EASILY IRRITABLE BUT REDIRECTABLE, SEEN WALKING WITH FWW, COMPLINAT WITH MEDICATION BUT NEEDED PROMPTING, PATIENT VERBALIZES PAIN , PAIN MEDICATION WAS GIVEN NO DISTRESS AT THIS TIME WILL CONTINUE MONITOR
[2020-03-08] MEDS: FLUTICASONE/VILANTEROL 1 EACH BLST.W.DEV INH SCH (08:47)
[2020-03-08] MEDS: ASPIRIN 81 MG TAB.CHEW PO SCH (08:48)
[2020-03-08] MEDS: SPIRONOLACTONE 50 MG TABLET PO SCH (08:48)
[2020-03-08] MEDS: HALOPERIDOL 1 MG TABLET PO SCH ×3 (08:48→16:13)
[2020-03-08] MEDS: FUROSEMIDE 20 MG TABLET PO SCH (08:48)
[2020-03-08] MEDS: MAGNESIUM OXIDE 400 MG TABLET PO SCH ×2 (08:48→16:13)
[2020-03-08] MEDS: DOCUSATE SODIUM 100 MG CAPSULE PO SCH ×2 (08:48→16:14)
[2020-03-08] MEDS: DIVALPROEX 250 MG TABLET.DR PO SCH ×2 (08:48→21:03)
[2020-03-08] MEDS: CHOLECALCIFEROL 1,000 UNIT TABLET PO SCH (08:48)
[2020-03-08] MEDS: APIXABAN 5 MG TABLET PO SCH ×2 (08:49→21:06)
[2020-03-08] MEDS: MIRALAX 17 GM POWD.PACK PO SCH (08:50)
[2020-03-08] MEDS: HYDROCODONE/APAP 5-325MG TABLET PO PRN ×2 (12:16→21:03)
[2020-03-08 16:00] VITALS: BP 132/75
--- NOTE | 2020-03-08 18:09 | NUR ---
patient took shower, and been compliant with medication, no distress, needed, redirection
[2020-03-08 20:27] VITALS: BP 116/60
--- NOTE | 2020-03-08 21:03 | NUR ---
PATIENT STILL AT THE TV ROOM AND REQUESTED NARCO DUE PAIN ON HER BACK. PATIENT BUSY SOCIALIZING WITH OTHER PATIENT, CALM AT THIS TIME. CONT TO MONITOR.
--- NOTE | 2020-03-08 21:45 | NUR ---
PATIENT ALERT ORIENTED, NO COMPLAIN OF PAIN. PATIENT STAYED ON TV ROOM TO WATCH WITH OTHER PATIENTS, PATIENT CALM AT THIS TIME, CONT TO MONITOR.
--- NOTE | 2020-03-09 06:32 | NUR ---
PATIENT ASLEEP BUT AROUSABLE, SLEPT FOR 4.30 HRS, NO FURTHER COMPLAIN OF PAIN, CONT TO MONITOR.
[2020-03-09 07:30] VITALS: BP 137/74
[2020-03-09] MEDS: DOCUSATE SODIUM 100 MG CAPSULE PO SCH ×2 (08:15→17:21)
[2020-03-09] MEDS: DIVALPROEX 250 MG TABLET.DR PO SCH ×2 (08:15→20:19)
[2020-03-09] MEDS: MIRALAX 17 GM POWD.PACK PO SCH (08:15)
[2020-03-09] MEDS: HALOPERIDOL 1 MG TABLET PO SCH ×3 (08:16→17:21)
[2020-03-09] MEDS: FUROSEMIDE 20 MG TABLET PO SCH (08:16)
[2020-03-09] MEDS: ASPIRIN 81 MG TAB.CHEW PO SCH (08:16)
[2020-03-09] MEDS: CHOLECALCIFEROL 1,000 UNIT TABLET PO SCH (08:16)
[2020-03-09] MEDS: MAGNESIUM OXIDE 400 MG TABLET PO SCH ×2 (08:17→17:21)
[2020-03-09] MEDS: APIXABAN 5 MG TABLET PO SCH ×2 (08:17→20:19)
[2020-03-09] MEDS: SPIRONOLACTONE 50 MG TABLET PO SCH (08:18)
[2020-03-09] MEDS: FLUTICASONE/VILANTEROL 1 EACH BLST.W.DEV INH SCH (08:19)
--- NOTE | 2020-03-09 14:07 | NUR ---
patient AOx3, compliant with meds denies SI and HI, needs prompting and redirection, ambulating with FWW.
[2020-03-09] MEDS: HYDROCODONE/APAP 5-325MG TABLET PO PRN ×2 (14:24→21:43)
[2020-03-09 15:23] VITALS: BP 100/62
[2020-03-09 20:12] VITALS: BP 130/66
--- NOTE | 2020-03-10 06:49 | NUR ---
patient slept for approx. 2.30 hrs through the night. continue hyperverbal, preoccupied and anxious. she refused PO PRN medication for insomnia. pt is now sleeping in her bed. will continue to monitor.
[2020-03-10 07:30] VITALS: BP 107/41
[2020-03-10] MEDS: DOCUSATE SODIUM 100 MG CAPSULE PO SCH ×2 (08:34→17:19)
[2020-03-10] MEDS: FLUTICASONE/VILANTEROL 1 EACH BLST.W.DEV INH SCH (08:34)
[2020-03-10] MEDS: ASPIRIN 81 MG TAB.CHEW PO SCH (08:34)
[2020-03-10] MEDS: MAGNESIUM OXIDE 400 MG TABLET PO SCH ×2 (08:34→17:19)
[2020-03-10] MEDS: MIRALAX 17 GM POWD.PACK PO SCH (08:34)
[2020-03-10] MEDS: DIVALPROEX 250 MG TABLET.DR PO SCH ×2 (08:34→20:52)
[2020-03-10] MEDS: HALOPERIDOL 1 MG TABLET PO SCH ×3 (08:35→17:19)
[2020-03-10] MEDS: CHOLECALCIFEROL 1,000 UNIT TABLET PO SCH (08:35)
[2020-03-10] MEDS: FUROSEMIDE 20 MG TABLET PO SCH (08:35)
[2020-03-10] MEDS: SPIRONOLACTONE 50 MG TABLET PO SCH (08:35)
[2020-03-10] MEDS: APIXABAN 5 MG TABLET PO SCH ×2 (08:36→21:00)
--- NOTE | 2020-03-10 11:28 | NUR ---
SW Note: Spoke with Frannie Avelar from [facility] ([phone]) to inform of the patient's placement upon discharge to [facility].
[2020-03-10] MEDS: HYDROCODONE/APAP 5-325MG TABLET PO PRN ×2 (13:17→20:53)
[2020-03-10 16:00] VITALS: BP 110/72
--- NOTE | 2020-03-10 17:59 | NUR ---
received patient AOx3, compliant with meds denies SI and HI, needs prompting and redirection,will be discharged in am to SNF.
[2020-03-10 20:50] VITALS: BP 111/75
--- NOTE | 2020-03-10 22:00 | NUR ---
received to care, watching tv with peers, having minimal interactions with them, but able to make her needs known, to staff. remains hypermanic and obsessive, but more directable. PRN citlalyco was given at 2052, for lower back pain, which was effective. as of 2199, she remains awake, watching tv. no distress noted. will continue to monitor closely.
--- NOTE | 2020-03-10 23:30 | NUR ---
pt went to bed, around 2300. as of 2329, she appears to be asleep. no distress noted. will continue to monitor closely.
--- NOTE | 2020-03-11 06:00 | NUR ---
slept 4.75 hours, total. continues to sleep. no distress noted.
[2020-03-11 07:30] VITALS: BP 114/50
--- NOTE | 2020-03-11 08:02 | NUR ---
Discharge Note: Patient will be discharged to [facility] [address] [place] [address] ([phone]) via ambulance transportation at 9:30am. Spoke with school coordinator, Connie who confirmed patient is accepted to facility. Patients daughter, Janet Mcgraw ([phone]) is aware and agreeable with discharge plans. Patient is aware and agreeable with discharge plans. Patient denies suicidal or homicidal ideation. Patient presents with appropriate mood and congruent affect. Patient will be following up with psychiatrist Dr. Montemayor and Spring Enc[facility] Dr. Cortes at [facility].
[2020-03-11] MEDS: FLUTICASONE/VILANTEROL 1 EACH BLST.W.DEV INH SCH (08:54)
[2020-03-11] MEDS: SPIRONOLACTONE 50 MG TABLET PO SCH (08:55)
[2020-03-11] MEDS: MIRALAX 17 GM POWD.PACK PO SCH (09:00)
[2020-03-11] MEDS: ASPIRIN 81 MG TAB.CHEW PO SCH (09:01)
[2020-03-11] MEDS: MAGNESIUM OXIDE 400 MG TABLET PO SCH (09:01)
[2020-03-11] MEDS: APIXABAN 5 MG TABLET PO SCH (09:01)
[2020-03-11] MEDS: FUROSEMIDE 20 MG TABLET PO SCH (09:01)
[2020-03-11] MEDS: DOCUSATE SODIUM 100 MG CAPSULE PO SCH (09:02)
[2020-03-11] MEDS: CHOLECALCIFEROL 1,000 UNIT TABLET PO SCH (09:02)
[2020-03-11] MEDS: DIVALPROEX 250 MG TABLET.DR PO SCH (09:02)
[2020-03-11] MEDS: HALOPERIDOL 1 MG TABLET PO SCH (09:02)
--- NOTE | 2020-03-11 10:29 | NUR ---
Discharged Patient to [facility] via ambulance, all am medication given to patient with prompting ,vs stable.all personal belonging taking by patient.
== END 2020-03-11 10:15 | DRG 885 ==
LOC: ER 19:09 → GPS 21:09
PROVIDERS: ADMIT Psychiatry & Neurology Psychiatry; ATTEND Nurse Practitioner Acute Care
DX: F29 Unspecified psychosis not due to a substance or known physiological condition (principal); E88.09 Other disorders of plasma-protein metabolism, not elsewhere classified; J44.9 Chronic obstructive pulmonary disease, unspecified; I25.10 Atherosclerotic heart disease of native coronary artery without angina pectoris; Z92.3 Personal history of irradiation; Z86.718 Personal history of other venous thrombosis and embolism; Z85.118 Personal history of other malignant neoplasm of bronchus and lung; D61.818 Other pancytopenia; Z79.01 Long term (current) use of anticoagulants; F41.9 Anxiety disorder, unspecified; F20.9 Schizophrenia, unspecified; Z73.6 Limitation of activities due to disability; I50.9 Heart failure, unspecified; F39 Unspecified mood [affective] disorder; D72.819 Decreased white blood cell count, unspecified; Z92.21 Personal history of antineoplastic chemotherapy; Z87.891 Personal history of nicotine dependence; Z79.82 Long term (current) use of aspirin; R73.03 Prediabetes; N63.0 Unspecified lump in unspecified breast
CPT/HCPCS: 36415; 82747; 82784; 83735; 84100; 84155; 84165; 84443; 85014; 85025; 85651; 86038; 86300; 86334; 86430; 86706; 86803; 87340; 87806; A4663; J1630; J2060; J3490

== ENCOUNTER 2022-01-02 04:57 | Emergency (ER) | payer MEDICARE, OTHER ==
[~2022-01-02] VITALS: Ht 170.2 cm; Wt 59.0 kg
[~2022-01-02 04:57] MED LIST: APIX5TAB4 PO; ASPI81TA31 PO; CHOL200026 PO; DOCU-141 PO; FURO-152 PO; MAGN400T51 PO; POLY17PO4 PO; PRAV80TA PO; SACUBITRIL; SPIR50TA5 PO; UMEC62.5 IH; VALSARTAN
--- NOTE | 2022-01-02 05:10 | NUR ---
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
--- NOTE | 2022-01-02 05:20 | NUR ---
Seen and examined by NEREIDA Silverman.
--- NOTE | 2022-01-02 05:40 | NUR ---
Lab drawn c/o phleb and xray done c/o tech.
[2022-01-02] MEDS ORDERED: HYDROMORPHONE 1 MG/1 ML DISP.SYRIN IM ONE (05:45)
[2022-01-02] MEDS ORDERED: ONDANSETRON ODT 4 MG TAB.RAPDIS SL ONE (05:45)
--- NOTE | 2022-01-02 05:45 | NUR ---
Seen and examined by NEREIDA Silverman. Addendum: 01/02/22 at 0631 by GEORGIE Wrong time.
[2022-01-02] MEDS ORDERED: ONDANSETRON ODT 4 MG TAB.RAPDIS ONE (06:01)
[2022-01-02] MEDS ORDERED: HYDROMORPHONE 1 MG/1 ML DISP.SYRIN ONE (06:01)
[2022-01-02 06:08] LABS: HEMATOCRIT 43.6 % (31.2-41.9); MEAN CORPUSCULAR HEMOGLOBIN 31.6 uug (24.7-32.8); MEAN CORPUSCULAR VOLUME 94.6 fL (75.5-95.3); PLATELET COUNT (AUTO) 132 K/uL (179-408)
[2022-01-02] MEDS ORDERED: OXYC-128 PO (06:20)
[2022-01-02 06:21] LABS: CARBON DIOXIDE 28 mmol/L (21-32); CHLORIDE 103 mmol/L (98-107); CREATININE 0.6 mg/dL (0.6-1.3); GLUCOSE 95 mg/dL (74-106); POTASSIUM 4.1 mmol/L (3.5-5.1); UREA NITROGEN, BLOOD 9 mg/dL (7-18)
[2022-01-02 07:44] VITALS: BP 135/80
--- NOTE | 2022-01-02 07:46 | NUR ---
Patient discharged to home in stable condition. Written and verbal after care instructions given. Patient verbalizes understanding of instructions. Stressed follow up or return to ER for worsening s/s. Instructed not to drive. Patient stated she wants ambulance to help her go home. Called [facility], spoke with emili TAVERAS 9:30AM. Accompanied patient to waiting room and informed ETA of ambulance. Patient agreed to wait until ambulance pick her up.
== END 2022-01-02 07:49 | disposition home or self-care (01) ==
LOC: ER 04:59
DX: M25.511 Pain in right shoulder (principal); R07.89 Other chest pain; I49.3 Ventricular premature depolarization; Z87.891 Personal history of nicotine dependence; E78.5 Hyperlipidemia, unspecified; F20.9 Schizophrenia, unspecified; J43.9 Emphysema, unspecified; I25.10 Atherosclerotic heart disease of native coronary artery without angina pectoris; Z85.118 Personal history of other malignant neoplasm of bronchus and lung; Z79.82 Long term (current) use of aspirin; Z79.01 Long term (current) use of anticoagulants; Z79.899 Other long term (current) drug therapy
CPT/HCPCS: 36415; 71045; 80048; 83735; 84484; 85025; 93005; 96372; 99285; J1170; A4663; Q0162

== ENCOUNTER 2022-04-20 21:20 | Emergency (ER) | payer MEDICARE, OTHER ==
[~2022-04-20] VITALS: Ht 167.6 cm; Wt 53.5 kg
[~2022-04-20 21:20] MED LIST changes: +OXYC-128 PO
--- NOTE | 2022-04-20 22:44 | NUR ---
Patient able to walk with steady gait. NAD noted
[2022-04-20] MEDS ORDERED: SULF1TAB48 PO (22:59)
[2022-04-20] MEDS ORDERED: SULFAMETH/TRIMETH 800/160 MG TABLET PO ONE (23:00)
[2022-04-20] MEDS ORDERED: SULFAMETH/TRIMETH 800/160 MG TABLET ONE (23:04)
--- NOTE | 2022-04-20 23:07 | NUR ---
Patient discharged to home in stable condition. Written and verbal after care instructions given. Patient verbalizes understanding of instructions. Stressed follow up or return to ER for worsening s/s. Patient is a/ox3, NAD noted. Patient is able to walk with steady gait
[2022-04-20 23:14] VITALS: BP 131/71
== END 2022-04-20 23:15 | disposition home or self-care (01) ==
LOC: ER 21:20
DX: L98.9 Disorder of the skin and subcutaneous tissue, unspecified (principal); Z87.891 Personal history of nicotine dependence; F20.0 Paranoid schizophrenia; Z91.14 Patient's other noncompliance with medication regimen
CPT/HCPCS: A4663

== ENCOUNTER 2022-05-18 18:33 | Emergency (ER) | payer MEDICARE, OTHER ==
[~2022-05-18] VITALS: Ht 170.2 cm; Wt 52.6 kg
[~2022-05-18 18:33] MED LIST changes: +SULF1TAB48 PO
--- NOTE | 2022-05-18 19:10 | NUR ---
pt remained alert, oriented, speaking in full sentences. Pt able to stand, walk and drink water without difficulty. Pt c/o headache 5/10 since last night. She hit her head from a steel door last night.
--- NOTE | 2022-05-18 19:12 | NUR ---
Pt went to CT via w/c.
--- NOTE | 2022-05-18 19:25 | NUR ---
BEDSIDE REPORT OBTAINED FROM OUTGOING RN AND PATIENT BACK FROM CT. DENIES BETH AND AWAITING RESULTS
--- NOTE | 2022-05-18 19:25 | NUR ---
report given to Freda
[2022-05-18] MEDS ORDERED: ONDA4TAB5 PO (19:40)
--- NOTE | 2022-05-18 20:11 | NUR ---
DISCUSSED AND GIVE PATIENT DISCHARGE INSTRUCTIONS, RX AND FOLLOW UP APPT WITH PCP. PATIENT VERBALIZED UNDERSTANDING.
--- NOTE | 2022-05-18 20:30 | NUR ---
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 CT OF HEAD NEGATIVE.
[2022-05-18 21:51] VITALS: BP 141/68
== END 2022-05-18 20:30 ==
LOC: ER 18:35
DX: S09.90XA Unspecified injury of head, initial encounter (principal); W22.8XXA Striking against or struck by other objects, initial encounter; Y92.89 Other specified places as the place of occurrence of the external cause; Z87.891 Personal history of nicotine dependence; E78.5 Hyperlipidemia, unspecified; J44.9 Chronic obstructive pulmonary disease, unspecified; F20.9 Schizophrenia, unspecified; Z85.118 Personal history of other malignant neoplasm of bronchus and lung; Z79.01 Long term (current) use of anticoagulants
CPT/HCPCS: 70450; 93005; A4663

== ENCOUNTER 2022-06-18 00:57 | Inpatient (IN) | payer MEDICARE, OTHER ==
[~2022-06-18] VITALS: Ht 167.6 cm; Wt 72.6 kg
[~2022-06-18 00:57] MED LIST changes: -FURO-152 PO; +ONDA4TAB5 PO; -OXYC-128 PO; -SACUBITRIL; -SPIR50TA5 PO; -SULF1TAB48 PO; -UMEC62.5 IH; -VALSARTAN
--- NOTE | 2022-06-18 01:02 | NUR ---
Patient BIB by [id number] from [facility] for GD and DTO. Patient is on a 5150 hold, requiring medical clearance.
--- NOTE | 2022-06-18 01:22 | NUR ---
Dr. Hernandez on bedside for MSE.
[2022-06-18 01:28] LABS: HEMATOCRIT 42.7 % (31.2-41.9); MEAN CORPUSCULAR HEMOGLOBIN 31.5 uug (24.7-32.8); MEAN CORPUSCULAR VOLUME 93.5 fL (75.5-95.3); PLATELET COUNT (AUTO) 142 K/uL (179-408)
[2022-06-18 01:41] LABS: CARBON DIOXIDE 29 mmol/L (21-32); CHLORIDE 102 mmol/L (98-107); CREATININE 0.7 mg/dL (0.6-1.3); GLUCOSE 106 mg/dL (74-106); POTASSIUM 4.3 mmol/L (3.5-5.1); UREA NITROGEN, BLOOD 14 mg/dL (7-18)
[2022-06-18 01:43] LABS: ETHANOL < 3 MG/DL (0-0)
[2022-06-18 01:46] LABS: ACETAMINOPHEN < 2.0 ug/mL (10-30); ALANINE AMINOTRANSFERASE 21 U/L (14-59); ALKALINE PHOSPHATASE 69 U/L (50-136); ASPARTATE AMINOTRANSFERASE 17 U/L (15-37); BILIRUBIN,DIRECT < 0.1 mg/dL (0.0-0.2); BILIRUBIN,TOTAL 0.3 mg/dL (0.2-1.0); CREATINE KINASE, TOTAL 83 U/L (26-192); TOTAL PROTEIN, SERUM 6.3 g/dL (6.4-8.2)
[2022-06-18 02:08] LABS: THYROID STIMULATING HORMONE 1.777 mIU/mL (0.358-3.740)
[2022-06-18 02:51] LABS: *BILIRUBIN,URIN NEGATIVE (NEGATIVE); *BLOOD, URINE NEGATIVE (NEGATIVE); *CLARITY,URINE CLEAR (CLEAR); *COLOR,URINE YELLOW (YELLOW); *KETONES,URINE NEGATIVE (NEGATIVE); *UROBILINOGEN,URINE 0.2 E.U./dl (NORMAL); LEUKOCYTE ESTERASE ,URINE NEGATIVE (NEGATIVE); NITRITE, URINE NEGATIVE (NEGATIVE); PH,URINE 5.5 (5.0-8.0); UGLUCOSE NEGATIVE (NEGATIVE)
[2022-06-18 02:57] LABS: *AMPHETAMINE, URINE NEGATIVE (NEGATIVE); *CANNABINOID, URINE NEGATIVE (NEGATIVE); *COCCAINE, URINE NEGATIVE (NEGATIVE); *OPIATE, URINE NEGATIVE (NEGATIVE); *PHENCYCLIDINE SCREEN,URINE NEGATIVE (NEGATIVE)
[2022-06-18] MEDS ORDERED: AZITHROMYCIN 250 MG TABLET PO ONE (04:00)
[2022-06-18] MEDS ORDERED: AZITHROMYCIN 250 MG TABLET ONE (04:04)
[2022-06-18] MEDS ORDERED: levoFLOXacin 500 MG/D5W 100 ML ONE (04:38)
[2022-06-18] MEDS ORDERED: levoFLOXacin 500 MG/D5W 100ML PIGGYBACK IV ONE (04:45)
[2022-06-18] MEDS ORDERED: MAGNESIUM SULFATE/D5W 200 ML ONE (04:56)
[2022-06-18] MEDS: MAGNESIUM SULFATE/D5W 100 ML IV SCH ×2 (05:01→05:43)
--- NOTE | 2022-06-18 05:55 | NUR ---
Epic panel call placed, stated he will get a hold of Dr. Fernandez for admitting.
--- NOTE | 2022-06-18 05:58 | NUR ---
Dr Hernandez aware patient HR flactuates between 37-64/min. Sinus iron on tele with frequent PVC's.
--- NOTE | 2022-06-18 06:01 | NUR ---
Dr. Hernandez on panel call with Dr. Fernandez. Patient accepted for admission to telemetry unit, Dx. PNA.
[2022-06-18] MEDS ORDERED: ONDANSETRON HCL 4 MG TABLET PO PRN (06:15)
[2022-06-18] MEDS ORDERED: SPIR25TA6 PO (07:16)
[2022-06-18] MEDS ORDERED: ASPI81TA31 PO (07:16)
[2022-06-18] MEDS ORDERED: FLUT1BLS IH (07:16)
[2022-06-18] MEDS ORDERED: ROSU10TA2 PO (07:16)
[2022-06-18] MEDS ORDERED: FURO20TA4 PO (07:16)
[2022-06-18] MEDS ORDERED: APIX2.5T PO (07:16)
[2022-06-18] MEDS ORDERED: LEVO50TA8 PO (07:16)
[2022-06-18] MEDS ORDERED: ASCO500T85 PO (07:16)
[2022-06-18] MEDS ORDERED: OLME20TA13 PO (07:16)
[2022-06-18] MEDS ORDERED: ZINC220T3 PO (07:16)
[2022-06-18] MEDS ORDERED: DOCU100C36 PO (07:16)
--- NOTE | 2022-06-18 08:27 | NUR ---
Patient AAOx2. In no apparent distress. Eating breakfast at this time. Remains on O2 at 2LPM via NC. O2 sat at 98%. Denies any pain or discomfort. Continue to monitor.
[2022-06-18] MEDS ORDERED: Medication Not On Formulary EA (Apixaban (Eliquis) 5 MG) PO SCH (09:00)
[2022-06-18] MEDS ORDERED: PRAVASTATIN SODIUM 80 MG PO SCH (09:00)
[2022-06-18] MEDS ORDERED: MAGNESIUM OXIDE 400 MG PO SCH (09:00)
[2022-06-18] MEDS ORDERED: Medication Not On Formulary EA (Cholecalciferol (Vitamin D3) (Vitamin D3 TAB) 2,000 UNIT PO SCH (09:00)
[2022-06-18] MEDS ORDERED: MIRALAX 17 GM POWD.PACK PO SCH (09:00)
[2022-06-18] MEDS ORDERED: IPRATROPIUM BROMIDE 0.5 MG/2.5 ML NEBU ONE (09:10)
[2022-06-18] MEDS ORDERED: ALBUTEROL SULFATE 2.5 MG/3 ML NEBU ONE (09:10)
[2022-06-18] MEDS ORDERED: IPRATROPIUM BROMIDE 0.5 MG/2.5 ML NEBU NEB ONE (09:15)
[2022-06-18] MEDS ORDERED: ALBUTEROL SULFATE 2.5 MG/3 ML NEBU NEB ONE (09:15)
--- NOTE | 2022-06-18 12:00 | NUR ---
Patient getting anxious and restless. Pulled out IV. Informed Dr. Bush and ordered Ativan 0.5mg PO. Order noted and carried out. Will restart new IV.
[2022-06-18] MEDS ORDERED: LORAZEPAM 0.5 MG TABLET ONE (12:09)
[2022-06-18] MEDS ORDERED: LORAZEPAM 0.5 MG TABLET PO ONE (12:15)
[2022-06-18] MEDS ORDERED: ASPIRIN EC 81 MG TABLET.DR PO ONE (12:40)
[2022-06-18] MEDS ORDERED: CHOLECALCIFEROL 1,000 UNIT TABLET ONE (12:40)
[2022-06-18] MEDS ORDERED: DOCUSATE SODIUM 100 MG CAPSULE PO ONE ×2 (12:40→16:44)
[2022-06-18] MEDS: ASPIRIN 81 MG TAB.CHEW PO SCH (12:46)
[2022-06-18] MEDS: DOCUSATE SODIUM 100 MG CAPSULE PO SCH ×2 (12:46→16:49)
[2022-06-18] MEDS: CHOLECALCIFEROL 1,000 UNIT TABLET PO SCH (12:46)
[2022-06-18] MEDS ORDERED: ALBUTEROL SULFATE 2.5 MG/3 ML NEBU NEB PRN (14:15)
[2022-06-18] MEDS ORDERED: FUROSEMIDE 20 MG/2 ML VIAL IV SCH (14:15)
[2022-06-18] MEDS ORDERED: IPRATROPIUM BROMIDE 0.5 MG/2.5 ML NEBU NEB PRN (14:15)
[2022-06-18] MEDS ORDERED: LOSARTAN POTASSIUM 50 MG TABLET PO SCH (14:36)
[2022-06-18] MEDS ORDERED: FUROSEMIDE 20 MG/2 ML VIAL ONE (14:40)
[2022-06-18] MEDS ORDERED: ASCORBIC ACID 500 MG TABLET ONE (14:40)
[2022-06-18] MEDS: ASCORBIC ACID 500 MG TABLET PO SCH (14:44)
[2022-06-18] MEDS: FLUTICASONE/VILANTEROL 1 EACH BLST.W.DEV IH SCH (14:49)
[2022-06-18] MEDS: APIXABAN 2.5 MG TABLET PO SCH (14:49)
[2022-06-19] MEDS ORDERED: ATORVASTATIN 20 MG TABLET ONE ×2 (01:53→20:18)
[2022-06-19] MEDS: APIXABAN 2.5 MG TABLET PO SCH ×3 (01:57→20:23)
[2022-06-19] MEDS: ATORVASTATIN 20 MG TABLET PO SCH ×2 (01:57→20:23)
[2022-06-19 06:24] LABS: HEMATOCRIT 45.3 % (31.2-41.9); MEAN CORPUSCULAR HEMOGLOBIN 30.6 uug (24.7-32.8); MEAN CORPUSCULAR VOLUME 93.2 fL (75.5-95.3); PLATELET COUNT (AUTO) 144 K/uL (179-408)
[2022-06-19 06:41] LABS: CREATININE 0.6 mg/dL (0.6-1.3); MAGNESIUM 1.7 mg/dL (1.8-2.4); PHOSPHOROUS 3.8 mg/dL (2.5-4.9); POTASSIUM 3.8 mmol/L (3.5-5.1)
[2022-06-19] MEDS ORDERED: levoFLOXacin 500 MG TABLET ONE (06:48)
[2022-06-19] MEDS: levoFLOXacin 500 MG TABLET PO SCH (06:51)
[2022-06-19] MEDS ORDERED: LEVOTHYROXINE SODIUM 50 MCG TABLET ONE (07:44)
[2022-06-19] MEDS: LEVOTHYROXINE SODIUM 50 MCG TABLET PO SCH (07:45)
[2022-06-19] MEDS ORDERED: ASPIRIN 81 MG TAB.CHEW ONE (08:44)
[2022-06-19] MEDS: ASPIRIN 81 MG TAB.CHEW PO SCH (08:47)
[2022-06-19] MEDS ORDERED: Medication Not On Formulary EA (Zinc Sulfate (Zinc) 1 TAB) PO SCH (09:00)
[2022-06-19] MEDS: CHOLECALCIFEROL 1,000 UNIT TABLET PO SCH (09:00)
[2022-06-19] MEDS ORDERED: Medication Not On Formulary EA (Rosuvastatin Calcium (Crestor) 1 TAB) PO SCH (09:00)
[2022-06-19] MEDS: DOCUSATE SODIUM 100 MG CAPSULE PO SCH ×2 (09:00→16:57)
[2022-06-19] MEDS: FLUTICASONE/VILANTEROL 1 EACH BLST.W.DEV IH SCH (09:00)
[2022-06-19] MEDS: ASCORBIC ACID 500 MG TABLET PO SCH (09:00)
[2022-06-19] MEDS ORDERED: SPIRONOLACTONE 25 MG TABLET PO SCH (09:00)
[2022-06-19] MEDS ORDERED: LOSARTAN POTASSIUM 50 MG TABLET PO SCH (09:00)
[2022-06-19] MEDS ORDERED: DOCUSATE SODIUM 100 MG CAPSULE PO ONE ×2 (09:08→16:56)
[2022-06-19] MEDS ORDERED: ASCORBIC ACID 500 MG TABLET ONE ×2 (09:11→09:12)
[2022-06-19] MEDS ORDERED: LORAZEPAM 1 MG TABLET PO PRN (09:30)
[2022-06-19] MEDS: ZINC SULFATE 220 MG CAPSULE PO SCH (10:08)
[2022-06-19] MEDS ORDERED: MAGNESIUM OXIDE 400 MG TABLET PO ONE (11:00)
[2022-06-19] MEDS ORDERED: MAGNESIUM OXIDE 400 MG TABLET ONE (11:29)
[2022-06-19] MEDS: PAROXETINE HCL 10 MG TABLET PO SCH (11:32)
[2022-06-19] MEDS ORDERED: METOPROLOL TARTRATE 50 MG TABLET ONE (13:05)
[2022-06-19] MEDS: METOPROLOL TARTRATE 25 MG TABLET PO SCH ×2 (13:28→22:00)
--- NOTE | 2022-06-19 19:12 | NUR ---
WHEN I ARRIVED pt WAS EATING BREAKFAST IN NO DISTRESS,PT IS ALERT AAOX2,THOUGHOUT THE DAY PATIENT KEEPS ASKING WHATS GOING AND WHEN SHE LEAVING,PT IS CONTINENT WAS HELPED TO RESTROOM SEVERAL TIMES,PT HAVE GOOD APPETITE,FINISHED HER LUNCH AND DRINK LOT OF WATER,PT VITAL SIGNS @11:00AM BP 117/85 P 76,O2 98,PT VTALS @5:00PM BP 112/64,P 81,02 98 ,PT WAS RECEPTIVE TO TAKING ALL MEDS AND ASKED EACH TIME WHAT IT WAS FOR,PT IS RESTING AND WILL BE ADMITTED.
--- NOTE | 2022-06-19 19:26 | NUR ---
pt is aware she is admitted to the hospital for pna tele unit and she will remain in the er as there are no beds available on the third floor.
--- NOTE | 2022-06-19 19:35 | NUR ---
called housekeeping for a hospital bed for the pt because there is no nurse upstairs on third floor to take this pt.
--- NOTE | 2022-06-19 19:56 | NUR ---
pt was placed in a hospital bed for comfort. pt was able to ambulate to the bathroom with assist of director of nursing.
[2022-06-19] MEDS ORDERED: QUETIAPINE FUMARATE 25 MG TABLET ONE (20:18)
[2022-06-19] MEDS: QUETIAPINE FUMARATE 25 MG TABLET PO SCH (20:24)
--- NOTE | 2022-06-19 20:39 | NUR ---
FRANCI Silva will take the pt in room 323. I called to give report he states he will call me back.
--- NOTE | 2022-06-19 20:45 | NUR ---
report given to raheel jules pt will go to room 323.
--- NOTE | 2022-06-19 21:08 | NUR ---
pt transported via bed with all belongings, JAMARCUS quezada transported pt to the third floor room 323.
[2022-06-19 21:58] VITALS: BP 138/57
[2022-06-20 04:25] VITALS: BP 120/60
[2022-06-20] MEDS: LEVOTHYROXINE SODIUM 50 MCG TABLET PO SCH (06:04)
[2022-06-20] MEDS: levoFLOXacin 500 MG TABLET PO SCH (06:04)
--- NOTE | 2022-06-20 06:44 | NUR ---
Left pt. sleeping comfortable, no distress iv line patent. Hemodynamically stable. no c/of pain. sbp within normal.
[2022-06-20 07:35] LABS: CREATININE 0.7 mg/dL (0.6-1.3); MAGNESIUM 1.8 mg/dL (1.8-2.4); POTASSIUM 4.2 mmol/L (3.5-5.1)
[2022-06-20 08:00] VITALS: BP 110/83
[2022-06-20] MEDS: PAROXETINE HCL 10 MG TABLET PO SCH ×2 (09:00→09:21)
[2022-06-20] MEDS: ASCORBIC ACID 500 MG TABLET PO SCH (09:20)
[2022-06-20] MEDS: DOCUSATE SODIUM 100 MG CAPSULE PO SCH ×2 (09:20→16:11)
[2022-06-20] MEDS: CHOLECALCIFEROL 1,000 UNIT TABLET PO SCH (09:20)
[2022-06-20] MEDS: METOPROLOL TARTRATE 25 MG TABLET PO SCH ×2 (09:20→20:09)
[2022-06-20] MEDS: FLUTICASONE/VILANTEROL 1 EACH BLST.W.DEV IH SCH (09:21)
[2022-06-20] MEDS: ZINC SULFATE 220 MG CAPSULE PO SCH (09:21)
[2022-06-20] MEDS: APIXABAN 2.5 MG TABLET PO SCH ×2 (09:24→20:11)
[2022-06-20 12:17] VITALS: BP 108/63
[2022-06-20] MEDS ORDERED: METO25TA6 PO (13:41)
[2022-06-20] MEDS ORDERED: QUET25TA36 PO (13:41)
[2022-06-20] MEDS ORDERED: PARO10TA4 PO (13:41)
[2022-06-20 14:20] VITALS: BP 100/46
--- NOTE | 2022-06-20 18:42 | NUR ---
No concerns noted at this time. 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 Patient made aware. will endorse to the next shift for continuity of care.
[2022-06-20 20:00] VITALS: BP 111/60
[2022-06-20] MEDS: ATORVASTATIN 20 MG TABLET PO SCH (20:07)
[2022-06-20] MEDS: QUETIAPINE FUMARATE 25 MG TABLET PO SCH (20:09)
--- NOTE | 2022-06-20 21:37 | NUR ---
Patient in bed at this time, AAOX2, no sob, no c/o pain noted, BRP, will continue to monitor,
[2022-06-21 04:47] VITALS: BP 106/45
[2022-06-21] MEDS: LEVOTHYROXINE SODIUM 50 MCG TABLET PO SCH (06:12)
[2022-06-21] MEDS: levoFLOXacin 500 MG TABLET PO SCH (06:12)
[2022-06-21] MEDS: DOCUSATE SODIUM 100 MG CAPSULE PO SCH (08:22)
[2022-06-21 08:31] VITALS: BP 103/43
[2022-06-21] MEDS: METOPROLOL TARTRATE 25 MG TABLET PO SCH (08:31)
[2022-06-21] MEDS: PAROXETINE HCL 10 MG TABLET PO SCH (08:32)
[2022-06-21] MEDS: CHOLECALCIFEROL 1,000 UNIT TABLET PO SCH (08:32)
[2022-06-21] MEDS: ASCORBIC ACID 500 MG TABLET PO SCH (08:32)
[2022-06-21] MEDS: APIXABAN 2.5 MG TABLET PO SCH (08:33)
[2022-06-21] MEDS: ZINC SULFATE 220 MG CAPSULE PO SCH (08:34)
[2022-06-21] MEDS: FLUTICASONE/VILANTEROL 1 EACH BLST.W.DEV IH SCH (10:32)
--- NOTE | 2022-06-21 10:36 | NUR ---
10:35AM-PATIENT WAS DISCHARGED TO [facility]: [address] [facility] [address], [place]. , REPORT GIVEN TO KOURTNEY KOROMA AT [facility]. PATIENT HAD BREAKFAST, TWO CUPS OF COFFEE, ALERT AND ORIENTED; FOLLOWS DIRECTIONS AND VERBALLY COMMUNICATIVE., NO RESPIRATORY DISTRESS/SOB NOTED; ALL DUE MEDICATIONS ADMINISTERED ORDERED; EXCEPT BLOOD PRESSURE MEDICATIONS WERE HELD DT LOW BP 108/54 & P 60. PATIENT DENIES ANY PAIN OR DISCOMFORT. REPORT GIVEN TO REFRIGERATOR ASSEMBLER, PAPER WORK PACKET WITH MEDICATION PROFILE AND OTHER REPORTS GIVEN TO EMT'S.
[2022-06-21] MEDS ORDERED: METOPROLOL SUCCINATE XL 25 MG TAB.SR.24H PO SCH (21:00)
== END 2022-06-21 10:35 | DRG 308 ==
LOC: ER 01:00 → TRANSITION 12:21 → TELE3 06-19 20:53 → MEDSURG3 06-20 12:34
PROVIDERS: ADMIT Registered Nurse; ATTEND Nurse Practitioner Acute Care
DX: I49.3 Ventricular premature depolarization (principal); I50.33 Acute on chronic diastolic (congestive) heart failure; F33.3 Major depressive disorder, recurrent, severe with psychotic symptoms; J44.1 Chronic obstructive pulmonary disease with (acute) exacerbation; E03.9 Hypothyroidism, unspecified; E78.5 Hyperlipidemia, unspecified; F41.9 Anxiety disorder, unspecified; Z79.01 Long term (current) use of anticoagulants; Z79.82 Long term (current) use of aspirin; Z85.118 Personal history of other malignant neoplasm of bronchus and lung; Z87.891 Personal history of nicotine dependence; F29 Unspecified psychosis not due to a substance or known physiological condition; Z73.6 Limitation of activities due to disability; I48.0 Paroxysmal atrial fibrillation
CPT/HCPCS: 36415; 71045; 83735; 84100; 84443; 84484; 85025; 93005; 93307; A4663; G0378; G0480; J1940; J1956; J3475; J3590; Q0144